=== PATIENT | female | born 1950 | race Two or more races ===

== ENCOUNTER 2022-02-14 15:00 | Outpatient (CLI) | payer OTHER ==
[~2022-02-14 15:00] MED LIST: DOLOGEN CAPLET1 TAB PO; SUPER B-50 COMP1 CAP PO; TUSSIONEX PENNKI5 ML PO
== END 2022-02-15 08:21 | disposition home or self-care (01) ==
LOC: RAD 15:00
PROVIDERS: ATTEND Internal Medicine
DX: E04.2 Nontoxic multinodular goiter (principal)

== ENCOUNTER 2022-02-14 17:39 | Outpatient (CLI) | payer OTHER | END 2022-02-14 17:41 | disposition home or self-care (01) | LOC: SONOGRAMA 17:39 | PROVIDERS: ATTEND Pathology Anatomic Pathology & Clinical Pathology | DX: M15.0 Primary generalized (osteo)arthritis (principal); M54.2 Cervicalgia; M81.0 Age-related osteoporosis without current pathological fracture ==

== ENCOUNTER 2023-03-13 07:26 | Outpatient (CLI) | payer OTHER | END 2023-03-13 07:29 | disposition home or self-care (01) | LOC: NUCLEAR 07:26 | PROVIDERS: ATTEND Internal Medicine | DX: E04.2 Nontoxic multinodular goiter (principal) | CPT/HCPCS: 78014; A9512 ==